=== PATIENT | female | born 1960 | race African-American/Black ===

== ENCOUNTER 2020-11-20 12:29 | Emergency (ER) | payer OTHER ==
[2020-11-20 12:53] VITALS: BP 154/83; PULSE 88; TEMP 98.5; BMI 36.1
[2020-11-20 15:42] LABS: URINE APPEARANCE Clear; URINE BILIRUBIN Negative (NEGATIVE); URINE COLOR Yellow; URINE GLUCOSE (UA) Negative (NEGATIVE); URINE KETONE Negative (NEGATIVE); URINE LEUK ESTERASE Negative (NEGATIVE); URINE NITRITE Negative (NEGATIVE); URINE PROTEIN Negative (NEGATIVE); URINE UROBILINOGEN 0.2 mg/dL (0.2-1.0)
[2020-11-20 15:45] LABS: BASO % 0.7 % (0-2.0); EOS % 1.5 % (0-4.5); HEMATOCRIT 35.6 % (32.4-45.2); HEMOGLOBIN 11.4 GM/dL (10.7-15.3); LYMPH % 41.8 % (8-40); MCH 23.7 pg (25.7-33.7); MEAN CELL VOLUME 73.9 fl (80-96); MONO % 8.4 % (3.8-10.2); NEUT % 47.6 % (42.8-82.8); PLATELET COUNT 261 K/MM3 (134-434); RBC 4.81 M/mm3 (3.60-5.2); RDW 16.1 % (11.6-15.6); WHITE BLOOD COUNT 5.4 K/mm3 (4.0-10.0)
[2020-11-20 16:19] LABS: BLOOD UREA NITROGEN 15.4 mg/dL (7-18)
[2020-11-20 16:23] LABS: BILIRUBIN,TOTAL 0.3 mg/dL (0.2-1)
[2020-11-20 16:24] LABS: TOT PROT 8.1 g/dl (6.4-8.2)
== END 2020-11-20 17:17 | disposition home or self-care (01) ==
LOC: JER 12:29
DX: R10.9 Unspecified abdominal pain (principal)
CPT/HCPCS: 36415; 71046-TC-FY; 73110-TC-RT-FY; 80053; 81003; 83690; 85025; 87086; 93005; 93010; 99284-25

== ENCOUNTER 2023-07-27 16:11 | Emergency (ER) | payer OTHER ==
[2023-07-27 16:24] VITALS: BP 138/73; PULSE 75; RESP 17; TEMP 98.3; BMI 37.1
[2023-07-27 17:54] LABS: EOS % 2.1 % (0-4.5); HEMATOCRIT 36.1 % (32.4-45.2); HEMOGLOBIN 11.1 GM/dL (10.7-15.3); LYMPH % 24.8 % (8-40); MCHC 30.7 g/dl (32.0-36.0); MEAN CELL VOLUME 74.8 fl (80-96); MEAN PLT VOLUME 9.4 fl (7.5-11.1); MONO % 9.1 % (3.8-10.2); PLATELET COUNT 268 10^3/uL (134-434); RBC 4.83 M/mm3 (3.60-5.2); RDW 15.8 % (11.6-15.6); WHITE BLOOD COUNT 5.9 K/mm3 (4.0-10.0)
[2023-07-27 18:03] LABS: PROTHROMBIN TIME (PATIENT) 11.6 SEC (9.7-13.0)
[2023-07-27 18:06] LABS: ACTIVATED PTT 31.5 SECONDS (25.2-36.5)
[2023-07-27 18:17] LABS: ALBUMIN 3.6 g/dl (3.4-5.0); BLOOD UREA NITROGEN 14.9 mg/dL (7-18); CALCIUM 8.8 mg/dL (8.5-10.1)
[2023-07-27 18:20] LABS: CREATININE 1.1 mg/dL (0.55-1.3)
[2023-07-27 18:22] LABS: BILIRUBIN,TOTAL 0.6 mg/dL (0.2-1)
[2023-07-27 18:23] LABS: TOT PROT 7.6 g/dl (6.4-8.2)
[2023-07-27] MEDS ORDERED: SODIUM CHLORIDE 0.9% 500 ML INFUS.BAG IV ONE (18:42)
[2023-07-27] MEDS ORDERED: ACETAMINOPHEN 500 MG TABLET (FP) PO ONE (18:56)
[2023-07-27] MEDS ORDERED: METOCLOPRAMIDE HCL INJECTION 10 MG/2 ML VIAL IVPUSH ONE (18:56)
[2023-07-27] MEDS ORDERED: METOCLOPRAMIDE HCL INJECTION 10 MG/2 ML VIAL ONE (20:18)
[2023-07-27] MEDS ORDERED: ACETAMINOPHEN 500 MG TABLET (FP) ONE (20:19)
== END 2023-07-27 21:01 | disposition home or self-care (01) ==
LOC: JER 16:11
PROC: 3E033GC Introduction of Other Therapeutic Substance into Peripheral Vein, Percutaneous Approach (ICD-10-PCS; principal; 2023-07-27)
DX: S09.90XA Unspecified injury of head, initial encounter (principal); R42 Dizziness and giddiness; R51.9 Headache, unspecified; V89.2XXA Person injured in unspecified motor-vehicle accident, traffic, initial encounter; Y92.410 Unspecified street and highway as the place of occurrence of the external cause
CPT/HCPCS: 36415; 70450-TC; 80053; 84484; 85025; 85610; 85730; 93005; 93010; 99285-25